=== PATIENT | male | born 1935 | race Caucasian/White ===

== ENCOUNTER 2016-04-26 09:20 | Emergency (ER) | payer OTHER ==
--- NOTE | 2016-04-26 09:30 | UCPHY ---
H & P Time Seen by Provider: 04/26/16 09:27 Patient Type: Established HPI/ROS: This patient presents with a chief complaint of weakness in his right upper extremity associated with difficulty walking and talking. Symptoms began at approximately 8 or 9 o'clock this morning. Smoking Status: Former smoker Physical Exam: This is a well-developed well-nourished male who is in no acute distress. His gait is abnormal any seems to favor his right side. He is alert and oriented but his speech is slightly slurred although he does not appear to have a theron aphasic. There is partial weakness in his right upper extremity. Constitutional: Initial Vital Signs Temperature (C) 37.0 C 04/26/16 09:27 Heart Rate 74 04/26/16 09:27 Respiratory Rate 22 H 04/26/16 09:27 Blood Pressure 154/75 H 04/26/16 09:27 O2 Sat (%) 92 04/26/16 09:27 O2 Delivery Mode Room Air O2 (L/minute) 2 Allergies/Adverse Reactions: No Allergies [NKDA] Allergy (Verified 04/26/16 09:30) ENVIRONMENTAL Allergy (Uncoded 10/25/15 12:05) Home Medications: Medication Instructions Recorded Atorvastatin Calcium [Lipitor 10 10 mg PO HS 10/11/14 mg (*)] Duolin 100/20 1 puffs IH TID 10/11/14 Fluticasone Nasal [Flonase Nasal 1 sprays [place] BID 10/11/14 [place]] Fluticasone/Salmeter 250/50Mcg 1 puffs IH BID 10/11/14 [Advair 250/50 (*)] Apixaban [Eliquis] 5 mg PO BID #60 tab 10/23/14 Metoprolol Tartrate [Lopressor 25 12.5 mg PO BID #30 tab 10/23/14 mg (*)] Lasix 10/25/15 Lisinopril 10/25/15 Eloquis 04/26/16 Medical Decision Making - Diagnostics EKG Interpretation: An EKG shows a left bundle branch block. ED Course/Re-evaluation: An IV was started But no medications were administered. He was monitored during his stay in the department. He was stable. Because of his symptoms the patient was transported emergently [facility] where the emergency physician there was contacted and agreed to accept the patient. Differential Diagnosis: This patient appears to be having a stroke. Departure - Departure Disposition: Acute Care Hospital Not [facility] Clinical Impression: Stroke Referrals: Stanley Ochoa, [Primary Care Provider] - As per Instructions - PQRS PQRS Measurement: Not applicable
[2016-04-26 09:37] VITALS: BP 154/75; PULSE 74; RESP 22; TEMP 98.6
--- NOTE | 2016-04-26 09:47 | CPEKG ---
Heart Rate: 64 RR Interval: 938 P-R Interval: 176 QRSD Interval: 154 QT Interval: 476 QTC Interval: 491 P Jasper: 68 QRS Jasper: 38 T Wave Jasper: 89 EKG Severity - ABNORMAL ECG - EKG Impression: SINUS RHYTHM EKG Impression: LEFT BUNDLE BRANCH BLOCK Electronically Signed By: Ramsey Sainz 26-Apr-2016 09:54:56
[2016-04-26 09:57] VITALS: O2SAT 92
== END 2016-04-26 09:40 | disposition short-term general hospital (02) ==
LOC: CED 09:20
DX: I63.9 Cerebral infarction, unspecified (principal); Z87.891 Personal history of nicotine dependence
CPT/HCPCS: 93005; G0463; 93010-PO; 99213-PO

== ENCOUNTER → 2016-06-12 | Day surgery (SDC) | payer OTHER ==
[~2016-06-12] MED LIST: BENZOCAINE UNIT DOSE SPRAY HURRICAINE MM ONE; MIDAZOLAM 2 MG/2 ML VIAL IVP ONE; MIDAZOLAM 2 MG/2 ML VIAL ONE; NS 1,000 ML IV ONE; fentaNYL 100 MCG/2 ML INJ IVP ONE; fentaNYL 100 MCG/2 ML INJ ONE
--- NOTE | 2016-06-22 12:45 | PDCARTEE ---
CAR BIRGIT CAR BIRGIT: PROCEDURE: TRANSESOPHAGEAL ECHOCARDIOGRAPHY DATE OF PROCEDURE: 06-12-16 INDICATION: REASSESSMENT OF BIOPROSTHETIC AORTIC VALVE VEGETATION PRELIMINARY FINDINGS: After consent was obtained, the patient had Hurricaine spray for local anesthetic to the back of the throat. The patient was then positioned on his left lateral, and monitored for heart rate, oxygen saturation, blood pressure, and respiratory rate. Sedation with fentanyl and versed were dosed by the patient to achieve light to moderate sedation, and the BIRGIT probe was placed without difficulty. Standard views were obtained LVEF was normal with normal wall motion. Biatrial enlargement was noted. Moderate mitral regurgitation was appreciated. Bioprosthetic aortic valve was noted without appreciation of vegetation or abnormal colour flow. Mild aortic insufficiency was noted. There was a small, communicating pocket noted to the aortic valve. Mild tricuspid regurgitation was noted. No complications were appreciated with this procedure. Old studies were reviewed at the conclusion of this study to ensure that the degree of mitral pathology was not new or progressive. Patient was scheduled to be seen in outpatient cardiology for follow up. Patient recovered without incident or issues.
== END | disposition home or self-care (01) ==
LOC: FCATH 08:36
PROVIDERS: ATTEND Internal Medicine Cardiovascular Disease
PROC: B245ZZ4 Ultrasonography of Left Heart, Transesophageal (ICD-10-PCS; principal; 2016-06-12)
DX: I08.3 Combined rheumatic disorders of mitral, aortic and tricuspid valves (principal); R06.00 Dyspnea, unspecified; Z95.2 Presence of prosthetic heart valve; I48.91 Unspecified atrial fibrillation; I10 Essential (primary) hypertension; F17.200 Nicotine dependence, unspecified, uncomplicated; Z79.01 Long term (current) use of anticoagulants; Z86.73 Personal history of transient ischemic attack (TIA), and cerebral infarction without residual deficits; Z86.79 Personal history of other diseases of the circulatory system
CPT/HCPCS: J2250; J3010

== ENCOUNTER 2016-08-07 07:35 | Day surgery (SDC) | payer OTHER ==
[2016-08-07] MEDS ORDERED: BENZOCAINE UNIT DOSE SPRAY HURRICAINE MM ONE (07:44)
[2016-08-07] MEDS ORDERED: NS 1,000 ML IV ONE (07:44)
[2016-08-07] MEDS ORDERED: MIDAZOLAM 2 MG/2 ML VIAL IVP ONE (07:44)
[2016-08-07] MEDS ORDERED: fentaNYL 100 MCG/2 ML INJ IVP ONE (07:44)
[2016-08-07] MEDS ORDERED: MIDAZOLAM 2 MG/2 ML VIAL ONE (08:45)
[2016-08-07] MEDS ORDERED: fentaNYL 100 MCG/2 ML INJ ONE (08:46)
--- NOTE | 2016-08-07 10:54 | PDCARTEE ---
CAR BIRGIT CAR BIRGIT: BIRGIT After consent was obtained, the patient was placed in the left lateral decub position. Heart rate, blood pressure, respirations, and oxygen sats were monitored over the course of this study. Topical spray was used for local anesthetic, and 2 mg of versed with 25 mg of fentanyl were used for light sedation. The BIRGIT probe was placed without difficulty and standard views were obtained. 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
--- NOTE | 2016-08-13 09:12 | ECHO ---
[id number] + + [address] : : [place] [address] : : [phone] + + Transesophageal Echocardiographic Report + -------+ :Name: BUZZ CROSS LStudy Date: 08/07/2016 09:00 AM : : Hospital Admission Number: [id number] Locati on: CVC: :: 1935 Gender: Male : :Age: 80 yrs Race: WH : :Reason For Study: Eval aortic valve : + -------+ Doppler Measurements \T\ Calculations Ao mean P.7 mmHg Ao V2 mean: 179.0 cm/sec Ao V2 VTI: 55.5 cm Left Ventricle Left ventricular systolic function is normal. Atria JESSICA has been ligated. The left atrial size is normal. Right atrial size is normal. Mitral Valve There is moderate mitral regurgitation. Tricuspid Valve There is mild tricuspid regurgitation. Aortic Valve There is no aortic valvular vegetation. There is a bioprosthetic aortic valve. AV max PG is 26mmHG. AV mean PG is 15mmHG. Procedure With heart rate, blood pressure and oximetry monitered the patient was administered IV Versed, fentanyl and the bite block in place, the throat was anesthetized with topical spray. The Omniplane transesophageal probe was passed without difficulty. Conclusion A 2D transesophageal echocardiogram with color flow Doppler was performed. Left ventricular systolic function is normal. JESSICA has been ligated. There is moderate mitral regurgitation. There is mild tricuspid regurgitation. There is a bioprosthetic aortic valve. AV max PG is 26mmHG. AV mean PG is 15mmHG. Final Reading Physician: Eddie Angel signed on 08/13/2016 09:11 AM Ordering Physician: Juice Granger Performed By: Juice Granger MD
== END 2016-08-07 11:14 | disposition home or self-care (01) ==
LOC: FCATH 07:35
PROVIDERS: ATTEND Internal Medicine Cardiovascular Disease
PROC: B24BZZ4 Ultrasonography of Heart with Aorta, Transesophageal (ICD-10-PCS; principal; 2016-08-07)
DX: I35.9 Nonrheumatic aortic valve disorder, unspecified (principal); Z95.4 Presence of other heart-valve replacement; I48.91 Unspecified atrial fibrillation; I10 Essential (primary) hypertension; J44.9 Chronic obstructive pulmonary disease, unspecified; F17.200 Nicotine dependence, unspecified, uncomplicated; Z79.01 Long term (current) use of anticoagulants; Z86.73 Personal history of transient ischemic attack (TIA), and cerebral infarction without residual deficits; Z79.2 Long term (current) use of antibiotics
CPT/HCPCS: J2250; J3010

== ENCOUNTER → 2017-06-14 | Outpatient (CLI) | payer OTHER | LOC: CIMAGING 14:19 | PROVIDERS: ATTEND Family Medicine | DX: Z13.83 Encounter for screening for respiratory disorder NEC (principal) | CPT/HCPCS: 71250-PO ==